=== PATIENT | female | born 1995 | race Caucasian/White ===

== ENCOUNTER 2019-03-10 23:55 | Emergency (ER) | payer OTHER ==
[~2019-03-10] VITALS: Ht 157.5 cm; Wt 72.6 kg
[2019-03-11] MEDS ORDERED: HYDROCODONE/APAP 10-325 MG TABLET ONE (00:29)
[2019-03-11] MEDS ORDERED: ONDANSETRON ODT 4 MG TAB.RAPDIS ONE (00:29)
[2019-03-11] MEDS ORDERED: HYDROCODONE/APAP 10-325 MG TABLET PO ONE (00:30)
[2019-03-11] MEDS ORDERED: ONDANSETRON ODT 4 MG TAB.RAPDIS SL ONE (00:30)
--- NOTE | 2019-03-11 01:31 | NUR ---
Patient discharged to home in stable conditon. Written and verbal after care instructions given. Patient verbalizes understanding of instructions. patient was given discharge instructions and gait training was provided. Patient pain was managed with medication and RX was given to patients mother. Patient ambulate via cruthes with parent''s minimal assistance. Patient exit care instrutions given along with valuables ad belongings.
[2019-03-11 01:40] VITALS: BP 113/87
== END 2019-03-11 01:43 | disposition home or self-care (01) ==
LOC: ER 03-11 00:02
DX: S92.354A Nondisplaced fracture of fifth metatarsal bone, right foot, initial encounter for closed fracture (principal); Z88.0 Allergy status to penicillin; Z88.2 Allergy status to sulfonamides; Z90.49 Acquired absence of other specified parts of digestive tract; X50.1XXA Overexertion from prolonged static or awkward postures, initial encounter; Y93.89 Activity, other specified; Y92.89 Other specified places as the place of occurrence of the external cause; Y99.8 Other external cause status
CPT/HCPCS: 73610; 73630; A4663; Q0162